=== PATIENT | male | born 1970 | race Caucasian/White ===

== ENCOUNTER 2020-09-07 21:17 | Inpatient (IN) | payer BC ==
[~2020-09-07] VITALS: Ht 165.1 cm; Wt 68.0 kg
--- NOTE | ~2020-09-07 | OP ---
[facility] [address] [place] [address] OPERATIVE REPORT Name: JAMI LEON Room: [place] [address] ADM IN M.R.#: [id number] Admission: 09/08/20 Attend Phys: Cookie Collier MD Discharge: Date of : 70 Report #: [id number] THIS REPORT FOR: cc: Alec Connors John E. DO ~ Nilo Deleon MD DATE OF SERVICE: 09/08/2020 PREOPERATIVE DIAGNOSIS: Small-bowel obstruction. POSTOPERATIVE DIAGNOSIS: Small-bowel obstruction PROCEDURE: Exploratory laparotomy with lysis of adhesions. SURGEON: Nilo Deleon MD ANESTHESIA: General. ESTIMATED BLOOD LOSS: Minimal. SPECIMEN: None. DESCRIPTION OF PROCEDURE: After informed consent was obtained, the patient was brought to the operating room and placed supine. SCDs were placed and working, preoperative antibiotics were administered, general anesthesia was induced. The abdomen was prepped and draped in the usual sterile fashion. Midline incision was made above the umbilicus. Fascia was incised. The incision measured approximately 10 cm. The fascia was incised. I was able to look at the small bowel. Small bowel was run from the ligament of Treitz down to the cecum. There was no overt mass in the small bowel. However, in the mid small bowel in the mid jejunum, there was an approximately 10 cm area that had patches of duskiness. There was no necrosis. The mesentery in this area appeared to be somewhat congested as well. However, there was good blood flow to the bowel as there was pulsatile blood flow in the mesentery. An adhesion was lysed, freeing this bowel up. The most likely scenario was that there was an adhesion causing an internal hernia. After this had been released, all of the small bowel was free. It was placed back in the abdomen. It was all viable. The fascia was then closed with 0 PDS in running fashion. The skin was closed with 4-0 Monocryl. Sterile dressings were applied. COMPLICATIONS: [place] [address] OPERATIVE REPORT Name: JAMI LEON Room: [address] IN [facility]#: [id number] Admission: 09/08/20 Attend Phys: Cookie Collier MD Discharge: Date of : 70 Report #: [id number] DISPOSITION: The patient was taken to recovery in satisfactory condition. By: [id number] Deleon MD /nt
[2020-09-07] MEDS ORDERED: TRILEPTAL150 MG PO (21:36)
[2020-09-07 21:42] LABS: ABSOLUTE BASOPHILS 0.1 thou/uL (0.0-0.2); ABSOLUTE EOSINOPHILS 0.2 thou/uL (0.0-0.7); ABSOLUTE LYMPHOCYTES 4.1 thou/uL (0.8-5.3); ABSOLUTE MONOCYTES 0.7 thou/uL (0.0-1.2); ABSOLUTE NEUTROPHILS 7.9 thou/uL (1.6-8.1); BASOPHILS 1.1 %; EOSINOPHILS 1.4 %; HEMATOCRIT 44.5 % (42.0-52.0); HEMOGLOBIN 15.2 gm/dL (14.0-18.0); LYMPHOCYTES 31.4 %; MCH 30.6 pg (26.0-34.0); MCHC 34.3 g/dL (28.0-37.0); MCV 89.2 fL (80.0-100.0); MONOCYTES 5.4 %; MPV 7.5 fl. (7.2-11.1); NUCLEATED RBCS 0 /100WBC; PLATELET COUNT* 338 thou/uL (150-400); POLYS 60.7 %; RBC 4.98 mil/uL (4.50-6.00); RDW-CV 12.2 % (10.5-14.5)
[2020-09-07 21:52] LABS: CALCIUM 9.8 mg/dL (8.5-10.1); POTASSIUM 3.6 mmol/L (3.5-5.1)
[2020-09-07 21:56] LABS: ALBUMIN 4.2 g/dL (3.4-5.0); TOTAL BILIRUBIN 0.5 mg/dL (<0.1-1.0); TOTAL PROTEIN 7.8 g/dL (6.4-8.2)
[2020-09-08 01:04] LABS: URINE BILIRUBIN NEGATIVE (Negative); URINE BLOOD TRACE (Negative); URINE CLARITY CLEAR; URINE COLOR YELLOW; URINE GLUCOSE-RANDOM NEGATIVE (Negative); URINE KETONES NEGATIVE (Negative); URINE LEUKOCYTES-REFLEX NEGATIVE (Negative); URINE NITRITE-REFLEX NEGATIVE (Negative); URINE PROTEIN NEGATIVE (Negative); URINE UROBILINOGEN 0.2 E.U./dl (0.2-1.0)
[2020-09-08 03:54] VITALS: BP 145/67
[2020-09-08 06:00] VITALS: BP 145/67
[2020-09-08 11:50] VITALS: BP 134/84
[2020-09-08 19:45] VITALS: BP 140/90
--- NOTE | 2020-09-08 19:59 | NUR ---
PT ADMITTED TO ROOM 223 VIA CART FROM PACU. PT AOX4, NO INITIAL C/O PAIN BUT ENDED UP C/O ABD PAIN BUT ASKED FOR FENTANYL, STATES IT WORKS MUCH BETTER FOR HIM THAN MORPHINE. DR MASTERSON NOTIFIED AND ORDERS RECEIVED FOR FENTANYL, GIVEN TO PT BUT PT STATES IT ISN'T WORKING AND I ASKED DR MASTERSON FOR HIGHER DOSE, NO NEW ORDERS. ICE PACK AND ICE CHIPS PROVIDED TO PT THROUGHOUT SHIFT, PT GOAL IS TO WORK ON PAIN MANAGEMENT. MEDS PER MAR, HOURLY ROUNDING OBSERVED, FALL PRECAUTIONS IN PLACE R/T PAIN MEDS AND POST-OP STATUS, CALL LIGHT W/IN REACH.
[2020-09-09] VITALS: BP 113/66
[2020-09-09 04:00] VITALS: BP 128/76
--- NOTE | 2020-09-09 05:45 | NUR ---
PATIENT HAS REMAINED ALERT AND ORIENTED X 4 THROUGHOUT THE SHIFT AND RESTING QUIETLY ON HOURLY ROUNDS. ALEJANDRA FENTANYL PATCH STARTED ON FIRST ROUNDS ORDERED. ONLY ONE DOSE OTHER PAIN MEDICATION NEEDED DURING THE NIGHT. UP TO THE BR TO VOID. STEADY GAIT. VOIDS UNMEASURED. NO GAS YET REPORTED. VITAL SIGNS STABLE. SCANT DRAINAGE ON MIDLINE ABDOMINAL DRESSING. NPO WITH ICE CHIPS SPARINGLY MAINTAINED. NO NAUSEA. CONTINUE TO MONITOR.
[2020-09-09 08:04] VITALS: BP 142/88
[2020-09-09 16:43] VITALS: BP 150/90
--- NOTE | 2020-09-09 18:32 | NUR ---
PATIENT CURRENTLY SITTING UP IN BED, AT BEDSIDE. PATIENT HAS REMAINED A&OX4, PLEASANT AND COOPERATIVE WITH CARES THIS SHIFT. PATIENT HAS BEEN UP AD SALMA AND HAS WALKED THE HALLS A FEW TIMES THIS SHIFT. PATIENT HAS TOLERATED CLEAR LIQUID DIET THUS FAR. PATIENT C/O HEADACHE AND ABDOMINAL PAIN THIS EVENING WITH PARTIAL RESULTS WITH PRN PAIN MEDICATION ADMINISTRATION. CALL LIGHT AND FREQUENTLY USED ITEMS WITHIN REACH.
[2020-09-09 20:20] VITALS: BP 150/84
[2020-09-10 04:20] LABS: HEMATOCRIT 35.8 % (42.0-52.0); MCHC 34.6 g/dL (28.0-37.0); MCV 89.7 fL (80.0-100.0); MPV 7.9 fl. (7.2-11.1); RBC 3.99 mil/uL (4.50-6.00); RDW-CV 12.1 % (10.5-14.5); WBC 8.2 thou/uL (4.0-11.0)
[2020-09-10 04:29] LABS: CALCIUM 8.4 mg/dL (8.5-10.1); CREATININE 0.7 mg/dL (0.6-1.3); POTASSIUM 3.3 mmol/L (3.5-5.1)
[2020-09-10 04:42] LABS: HEMOGLOBIN 12.4 gm/dL (14.0-18.0)
[2020-09-10 08:02] VITALS: BP 146/91
--- NOTE | 2020-09-10 08:11 | NUR ---
PATIENT HAS SLEPT WELL THROUGHOUT THE NIGHT. VSS ON RA. PAIN WELL CONTROLLED. MEDICATIONS GIVEN ORDERED AND CHARTED. PATIENT PASSING GAS. PATIENT TOLERATED CHICKEN BROTH, SPRITE, A FEW CRACKERS AND ICE CREAM WITH NO ISSUES. PATIENT UP AND AMBULATING AND DOING WELL. IV IN RIGHT HAND-NS @ 100ML/HR. MIDLINE INCISION IS C/D/I. BILATERAL SCD'S ON WHILE IN BED. PATIENT INSTRUCTED TO USE CALL LIGHT WHEN NEEDING ASSISTANCE. HOURLY ROUNDS MADE. WILL CONTINUE WITH PLAN OF CARE AND NURSING TO MONITOR.
[2020-09-10 16:25] VITALS: BP 154/91
--- NOTE | 2020-09-10 18:40 | NUR ---
PATIENT HAS REMAINED A&OX4 THIS SHIFT, HAS COMPLAINED LESS OF ABDOMINAL PAIN THIS SHIFT HOWEVER HAD HEADACHE EARLIER THIS MORNING AND REQUESTED "TYLENOL" WHICH WAS ORDERED AND RELIEVED HEADACHE. PATIENT ADVANCED TO FULL LIQUID DIET AND IS TOLERATING WELL. 24HR AMINOLEVULINIC ACID URINE IN PROGRESS (BEGAN AT 1215) AND IS ON ICE IN PATIENT'S ROOM. PATIENT HAD LOOSE BM TODAY. PATIENT'S POTASSIUM WAS 3.3 THIS A.M., ADMINISTERED POTASSIUM ORDERED AND DR. HEATON ORDERED RECHECK IN TOMORROW A.M. PATIENT HAS BEEN WALKING THE HALLS THIS SHIFT AND VOICES THAT HE "IS READY TO GO HOME". CALL LIGHT WITHIN REACH. 09/09-PATIENT'S ONE TIME FENTANYL PATCH WAS REMOVED AND DISCARDED APPROX 0900 ON 09/[address] MASTERSON ON 09/08[address]
[2020-09-11 04:00] VITALS: BP 127/79
[2020-09-11 04:02] LABS: HEMATOCRIT 39.2 % (42.0-52.0); HEMOGLOBIN 13.5 gm/dL (14.0-18.0); MCH 30.5 pg (26.0-34.0); MCHC 34.4 g/dL (28.0-37.0); MCV 88.8 fL (80.0-100.0); MPV 7.7 fl. (7.2-11.1); RBC 4.42 mil/uL (4.50-6.00); RDW-CV 12.2 % (10.5-14.5); WBC 7.1 thou/uL (4.0-11.0)
[2020-09-11 04:14] LABS: CALCIUM 9.3 mg/dL (8.5-10.1); CREATININE 0.7 mg/dL (0.6-1.3); POTASSIUM 3.5 mmol/L (3.5-5.1)
--- NOTE | 2020-09-11 05:35 | NUR ---
PATIENT ALERT/ORIENTED X4 AND UP AD SALMA. NO IV ACCESS. PT ON 24 HOUR URINE COLLECTION THAT ENDS AT 1215 ON 09/11/20. PT DENIES PAIN/NAUSEA DURING THIS SHIFT. PT WITH ABDOMINAL LAP SITES C/D/I. PT IS ANXIOUS TO GO HOME. WILL CONTINUE TO MONITOR.
[2020-09-11 07:40] VITALS: BP 132/94
[2020-09-11 11:14] VITALS: BP 132/94
--- NOTE | 2020-09-11 12:58 | NUR ---
PATIENT UP AMBULATING IN HALLS THIS AM AND AFTERNOON. NO COMPLAINTS OF PAIN. STERI STRIPS TO MIDLINE INTACT. DR. YBARRA HERE THIS AM AND OK FOR PATIENT TO ND. REG DIET ORDERED AND TOLERATED. PATIENT DISCHARGED TO HOME AT THIS TIME. PATIENT TAKEN OUT VIA WHEELCHAIR. VERBALIZED UNDERSTANDING OF PAPERWORK, NO SCRIPTS.
== END 2020-09-11 12:50 | disposition home or self-care (01) | DRG 358 ==
LOC: M.ERS 21:17 → M.2W 09-08 00:50 → M.TBA-ER 09-08 00:50 → M.2W 09-08 12:39
PROVIDERS: Emergency Medicine; Family Medicine; ADMIT Internal Medicine; ATTEND Internal Medicine
PROC: 0DJD0ZZ Inspection of Lower Intestinal Tract, Open Approach (ICD-10-PCS; principal; 2020-09-08)
DX: K56.50 Intestinal adhesions [bands], unspecified as to partial versus complete obstruction (principal); E87.6 Hypokalemia; K46.9 Unspecified abdominal hernia without obstruction or gangrene; Z20.822 Contact with and (suspected) exposure to COVID-19; Z79.899 Other long term (current) drug therapy